=== PATIENT | female | born 2000 | race Caucasian/White ===

== ENCOUNTER 2023-07-31 22:55 | Emergency (ER) | payer BC ==
[~2023-07-31] VITALS: Ht 170.2 cm; Wt 103.9 kg
[2023-08-01] MEDS ORDERED: DOXYCYCLINE HY100 MG PO (00:50)
[2023-08-01] MEDS ORDERED: IBUPROFEN200 MG PO (00:50)
[2023-08-01] MEDS ORDERED: CEPHALEXIN MONOHYDRATE 250 MG CAP ONE (00:52)
[2023-08-01] MEDS ORDERED: INSULIN REGULAR, HUMAN 100 UNIT/1 ML ONE ×2 (00:53→00:59)
[2023-08-01] MEDS ORDERED: INSULIN REGULAR, HUMAN 100 UNIT/1 ML SQ ONE (01:00)
[2023-08-01] MEDS ORDERED: Clindamycin INJ 150 MG/ML 600 MG Vial IM ONE (01:00)
[2023-08-01] MEDS ORDERED: CEPHALEXIN MONOHYDRATE 250 MG CAP PO ONE (01:00)
[2023-08-01 01:12] VITALS: BP 143/88; PULSE 88; RESP 16; TEMP 98.2; O2SAT 96
== END 2023-08-01 01:12 | disposition home or self-care (01) ==
LOC: FSED 23:07
DX: L03.114 Cellulitis of left upper limb (principal); E11.65 Type 2 diabetes mellitus with hyperglycemia; H92.02 Otalgia, left ear
CPT/HCPCS: 36415; 82948; 93971; 96372; 99283

== ENCOUNTER 2023-08-01 12:39 | Emergency (ER) | payer BC ==
[~2023-08-01] VITALS: Ht 170.2 cm; Wt 103.9 kg
[~2023-08-01 12:39] MED LIST: DOXYCYCLINE HY100 MG PO; IBUPROFEN200 MG PO
[2023-08-01] MEDS ORDERED: SODIUM CHLORIDE 0.9% 1000ML 1,000 ML IV STA (12:59)
[2023-08-01 13:31] LABS: BASOPHILS % 0.4 % (0.0-1.0); EOSINOPHILS # (AUTO) 0.1 (0.0-0.4); EOSINOPHILS % 1.5 % (0.0-6.0); HEMATOCRIT 42.8 % (34.2-44.1); HEMOGLOBIN 13.8 g/dL (12.0-16.0); LYMPHOCYTES # (AUTO) 2.5 (1.0-3.2); LYMPHOCYTES % 34.2 % (18.0-39.1); MEAN CORPUSCULAR HGB CONC 32.2 g/dL (31-35); MEAN CORPUSCULAR VOLUME 80.6 fL (81-99); MONOCYTES # (AUTO) 0.6 (0.2-0.8); MONOCYTES % 7.6 % (4.4-11.3); NEUTROPHILS # (AUTO) 4.1 (2.1-6.9); PLATELET COUNT 233 x10e3/uL (140-360); RED BLOOD COUNT 5.31 x10e6/uL (3.6-5.1); RED CELL DISTRIBUTION WIDTH 13.6 % (11.7-14.4); WHITE BLOOD COUNT 7.34 x10e3/uL (4.8-10.8)
[2023-08-01 14:00] LABS: ALANINE AMINOTRANSFERASE 64 IU/L (0-55); ALBUMIN 3.8 g/dL (3.5-5.0); ALBUMIN/GLOBULIN RATIO 1.1 (0.8-2.0); ALKALINE PHOSPHATASE 68 IU/L (40-150); ANION GAP 17.2 mmol/L (8-16); BILIRUBIN,TOTAL 0.5 mg/dL (0.2-1.2); BLOOD UREA NITROGEN 11 mg/dL (7-26); BUN/CREATININE RATIO 14 (6-25); CALCIUM 9.2 mg/dL (8.4-10.2); CARBON DIOXIDE 23 mmol/L (22-29); CHLORIDE 100 mmol/L (98-107); EST GLOMERULAR FILTRATION RATE 105 ML/MIN (>=60); GLUCOSE 262 mg/dL (74-118); POTASSIUM 4.2 mmol/L (3.5-5.1); SODIUM 136 mmol/L (136-145); TOTAL PROTEIN 7.2 g/dL (6.5-8.1)
[2023-08-01 16:06] VITALS: BP 154/82; O2SAT 95
== END 2023-08-01 15:30 | disposition home or self-care (01) ==
LOC: ER 13:02
DX: L52 Erythema nodosum (principal); E11.65 Type 2 diabetes mellitus with hyperglycemia
CPT/HCPCS: 36415; 73630; 80053; 84702; 85025; 99283; J7030